=== PATIENT | female | born 1945 | race Caucasian/White ===

== ENCOUNTER 2021-08-12 11:12 | Outpatient (CLI) | payer MEDICARE, OTHER | END 2021-08-12 11:13 | disposition home or self-care (01) | LOC: CSHMAMMO 11:12 | PROVIDERS: ATTEND Internal Medicine | DX: Z12.31 Encounter for screening mammogram for malignant neoplasm of breast (principal) | CPT/HCPCS: 77063; 77067 ==

== ENCOUNTER 2022-09-08 11:44 | Emergency (ER) | payer MEDICARE, OTHER | END 2022-09-08 13:18 | disposition home or self-care (01) | LOC: CSHERS 11:44 | DX: N13.2 Hydronephrosis with renal and ureteral calculous obstruction (principal); I10 Essential (primary) hypertension; Z87.891 Personal history of nicotine dependence | CPT/HCPCS: 74176 ==